=== PATIENT | male | born 1950 | race Caucasian/White ===

== ENCOUNTER 2016-06-30 15:01 | Emergency (ER) | payer MEDICARE, BC ==
[~2016-06-30] VITALS: Ht 177.8 cm; Wt 106.0 kg
[~2016-06-30 15:01] MED LIST: CEPH500C3 PO; METO25CR PO; PERC5TAB12 PO
[2016-06-30 15:05] VITALS: BP 144/92; PULSE 78; RESP 16; TEMP 98.1; O2SAT 95
[2016-06-30] MEDS ORDERED: METO25TA3 PO (15:28)
[2016-06-30] MEDS ORDERED: OXYC1CAP PO (15:28)
[2016-06-30] MEDS ORDERED: MORP1TAB24 PO (15:28)
--- NOTE | 2016-06-30 15:40 | PD ---
HPI Chief Complaint: Musculoskeletal Complaint Time Seen by Provider: 15:33 Travel History International Travel<30 days: No Contact w/Intl Traveler<30days: No Traveled to known affect area: No History of Present Illness HPI Patient is a 65-year-old male with a history of Qpvkgwb-Kbuya-Qpyhm disease and gout presenting with right knee pain and swelling. Present for 3 days. He denies any injury. He lives in [place] and is here for the winter and states that usually when a "colds "occurs usually will trigger this. He states it was swollen and painful 3 days prior and he has been using ibuprofen 200 mg every 4-6 hours which is not helping. He is on opioids for chronic neuropathy from his chronic disease. He states that for the last 30 years that this knee will swell up for several days and usually resolve. 4 years prior another ED and perform joint aspiration and gout crystals were present. This is similar to previous episodes. He denies any radiation of the pain. He has chronic weakness in the right ankle and toes but denies sensation loss, nothing acute or new. The pain does not radiate. He reports one episode of nausea and some feelings of warmth last evening but did not take his temperature or check for a fever. He denies abdominal pain. He denies diabetes and immunocompromised states. No history of GI bleed or gastritis or CAD. He states that high-dose anti-inflammatories to cause some stomach upset however. PFSH Past Medical History Hx Anticoagulant Therapy: No Cardiovascular Problems: No Chemotherapy: No Cerebrovascular Accident: No Diabetes: No Diminished Hearing: No Gout: Yes Hypertension: Yes Neurologic: Yes (NEUROPATHY BILATERAL LOWER EXTREMITIES. ) Reproductive: Yes (IBS) Respiratory: No Immunizations Current: Yes Influenza Vaccination: No Past Surgical History Hysterectomy: No Social History Alcohol Use: No Tobacco Use: No (FORMER) Substance Use: No Allergies-Medications (Allergen,Severity, Reaction): Coded Allergies: Shellfish (Verified Allergy, Severe, GI UPSET, 06/30/16) Reported Meds & Prescriptions Reported Meds & Active Scripts Active Colchicine 0.6 Mg Cap 0.6 Mg PO DIRECTED Take 2 tablets for gout, then one additional tablet one hour later if needed. May repeat the course in 3 days if not completely resolved. Reported Oxycodone (Oxycodone HCl) 5 Mg Cap 5 Mg PO Q6H PRN Morphine ER (Morphine Sulfate) 15 Mg Tab 15 Mg PO BID Metoprolol Tartrate 25 Mg Tab 25 Mg PO BID Review of Systems Except as stated in HPI: all other systems reviewed are Neg Physical Exam Narrative GENERAL: Well-developed and well-nourished adult male in no acute distress. SKIN: Warm and dry. Good turgor without tenting. HEAD: Normocephalic and atraumatic. EYES: PERRL bilaterally, 5mm. EOMI bilaterally. No injection or icterus present. No proptosis. Lids without edema or erythema. NECK: Supple, no meningeal signs. Trachea midline, no JVD. CARDIOVASCULAR: Regular rate and rhythm without murmurs, rubs, clicks or gallops. Radial and posterior tibial pulses 2+ bilaterally. No pedal edema. RESPIRATORY: Clear to auscultation bilaterally with symmetrical rise and fall, no distress or use of accessory muscles. GASTROINTESTINAL: Non-tender, non-distended. Normal bowel sounds all 4 quadrants. No masses or organomegaly present. LYMPH: Negative right popliteal and inguinal lymphadenopathy. Negative bilateral supraclavicular, cervical and facial lymphadenopathy. MUSCULOSKELETAL: Right knee has moderate edema anteriorly without discoloration. No erythema or ecchymosis. Minimally warm over the patella but not diffusely. No skin lesions present. Patient able to extend the knee to 180 but can only flex to approximately 100. No range of motion in the ankle and toes on the right chronically. Patient freely moving all four extremities spontaneously. Extremities without clubbing or cyanosis. No obvious deformities. NEUROLOGIC: CN II-XII grossly intact. Awake and alert. Strength 5/5 bilateral knee flexion, knee extension. Sensation intact to the distal tip of all toes of right foot. Normal speech. PSYCHIATRIC: Appropriate mood and affect; insight and judgment normal. Data Data Last Documented VS Vital Signs Date Time Temp Pulse Resp B/P Pulse Ox O2 Delivery O2 Flow Rate FiO2 06/30/16 15:05 98.1 78 16 144/92 95 Orders Ketorolac Inj (Toradol Inj) (06/30/16 15:45) Knee, Complete (4vws) (06/30/16 15:32) Splint Or Brace Apply/Monitor (06/30/16 16:26) MDM Medical Decision Making Medical Screen Exam Complete: Yes Emergency Medical Condition: Yes Interpretation(s) Last 24 hours Impressions Knee X-Ray 1/31/17 1532 Signed Impressions: Service Date/Time: Thursday, June 30, 2016 15:53 - CONCLUSION: 1. There is no evidence of acute fracture. Joint effusion. Please see above. Patrick Bautista MD Differential Diagnosis Gout versus pseudogout versus knee effusion versus Gvzjatn-Kfyfr-Youan versus septic joint unlikely Narrative Course Patient is a 65-year-old male with a history of Hrwczer-Qicff-Cgyhz disease and chronic weakness in the right foot who has had gout in the right knee previously presenting with edema and pain in the right knee not dramatically. He is neurovascularly intact without acute neurological complaints. He has good range of motion in the knee and there is some mild warmth but no discoloration. He is afebrile and nontoxic appearing. This does not have the appearance of a septic joint given the entire history, physical and vitals. This mostly represents a gout flare given his history. The patient was given Toradol 30 mg IM and ordered x-ray of the knee which showed a joint effusion without evidence of acute bony injury. There are some chronic changes likely related to patient's chronic knee pain and history of ligamentous surgery/ injury. He did get significant relief from the Toradol however as he has intolerance to high-dose NSAIDs and has responded to colchicine in the past we' ll give prescription for this. He was given an Aime wrap for the knee as well. Recommend follow-up with PCP or orthopedist this week.See discharge paperwork for further instructions. The plan was discussed with the patient who acknowledged their understanding and agreement. Reinforced the follow-up with primary care is critically important. Patient instructed on emergent conditions that should prompt return to ED. Diagnosis Primary Impression: Effusion, right knee Additional Impression: Gout attack Qualified Code: M10.9 - Acute gout of right knee, unspecified cause Referrals: Shawn Reardon MD Patient Instructions: General Instructions, Gout (ED) Additional Instructions: Take medications as prescribed Apply ice every 1 to 2 hours as needed for pain Avoid maneuvers that aggravate pain Keep AIME bandage on while being active or using extremity Elevate when at rest Be aware that may take several weeks for sprains to heal fully Follow-up with PCP or orthopedist in 2-3 days Return to the ED for any acute worsening of symptoms Med/Other Pt SpecificInfo: Prescription(s) given Scripts Colchicine 0.6 Mg Cap0.6 Mg PO DIRECTED #6 CAP Ref 0 Take 2 tablets for gout, then one additional tablet one hour later if needed. May repeat the course in 3 days if not completely resolved. Prov:Lucila Pizano MD 06/30/16 Disposition: 01 DISCHARGE HOME Condition: Stable Dennys Ashford III Jun 30, 2016 15:40
[2016-06-30] MEDS ORDERED: KETOROLAC TROMETHAMINE 60 MG/2 ML (IM) VIAL IM ONE (15:45)
--- NOTE | 2016-06-30 16:10 | RADHPO ---
EXAM DATE/TIME: 06/30/2016 15:53 [facility] COMPARISON: No previous studies available for comparison. INDICATIONS : Right knee pain and swelling for 3 days with no known injury. MEDICAL HISTORY : None. SURGICAL HISTORY : Right knee ligament repair 1967. ENCOUNTER: Initial ACUITY: 3 days PAIN SCORE: 7/10 LOCATION: Right anterior knee. FINDINGS: There is no evidence of acute fracture. Bony mineralization is normal. A suprapatellar joint effusion is present. There is dystrophic calcification at the femoral attachment of the medial collateral lig ament in this patient with history of previous ligament repair. MRI could be performed to evaluate fo r internal derangement. CONCLUSION: 1. There is no evidence of acute fracture. Joint effusion. Please see above. Patrick Bautista MD on June 30, 2016 at 16:07 Board Certified Radiologist. This report was verified electronically.
[2016-06-30] MEDS ORDERED: COLC1CAP3 PO (16:23)
== END 2016-06-30 16:42 | disposition home or self-care (01) ==
LOC: PHEFT 15:01
DX: M25.461 Effusion, right knee (principal); G62.9 Polyneuropathy, unspecified; G60.0 Hereditary motor and sensory neuropathy; M10.9 Gout, unspecified; F11.20 Opioid dependence, uncomplicated
CPT/HCPCS: 73564; 96372; 99283; J1885